=== PATIENT | female | born 1975 | race Caucasian/White ===

== ENCOUNTER 2022-07-27 07:54 | Outpatient (REF) | payer OTHER, SELFPAY ==
--- NOTE | ~2022-07-27 | MM_ITS ---
EXAMINATION: MM SCREENING DIGITAL BREAST TOMOSYNTHESIS, BILATERAL CLINICAL INFORMATION: Screening. Asymptomatic. The lifetime risk of breast cancer based on the Tyrer-Cuzick Model is 21%. COMPARISON: Outside baseline mamm[facility]: [facility]2021 [facility] TECHNIQUE: Digital breast tomosynthesis is performed in both the craniocaudal and mediolateral oblique views along with computer-aided detection (CAD). Synthesized 2D images are generated from the tomosynthesis. FINDINGS: The breasts are heterogeneously dense, which may obscure small masses (ACR BI-RADS breast composition Category c). Parenchymal pattern is similar to prior outside baseline exam. There are no significant masses, abnormal calcifications, or other abnormalities. No architectural abnormality. The axilla and skin contours are unremarkable. MM/MM tomosynthesis screening BI IMPRESSION: No mammographic evidence of malignancy. ASSESSMENT: BI-RADS 1: Negative RECOMMENDATION: Routine annual mammography screening. This patient's information was entered into a reminder system with a target due date for their next mammogram.
== END 2022-07-27 07:55 | disposition home or self-care (01) ==
LOC: HO.MAMMO 07:54
PROVIDERS: PCP Internal Medicine; Visit Provider Internal Medicine
DX: Z12.31 Encounter for screening mammogram for malignant neoplasm of breast (principal)
CPT/HCPCS: 77063; 77067

== ENCOUNTER 2024-01-31 12:30 | Outpatient (AMB) | payer OTHER, SELFPAY ==
[2024-01-31 12:48] VITALS: BP 112/62; PULSE 89; TEMP 36.4; O2SAT 98
--- NOTE | 2024-01-31 12:48 | AM.OFFWIN_ITS ---
Intake Vital Signs 01/31/24 12:48 Weight 190 lb BP 112/62 Blood Pressure Location Rt brachial Position Sitting Pulse 89 Pulse Source Pulse Oximeter Temp 97.6 F Temp Source Oral Pulse Oximetry (%) 98 Oxygen Delivery Method Room Air Intake Visit Reasons: EP Sore throat Intake Note: Pt is here today for a sore throat x1day Allergies acetaminophen [From VICODIN] Adverse Reaction (Mild, Unverified 11/26/19 19:25) N/V hydrocodone [From VICODIN] Adverse Reaction (Mild, Unverified 11/26/19 19:25) N/V HPI HPI Comments History of Present Illness Details 48 y/o female patient who presents to [facility] walk in clinic with c/o Sore- throat since yesterday evening. Denies fevers, chills, nausea or vomiting. Denies any recent contact with a sick person. Review of Systems Const All systems reviewed & are unremarkable except as noted in HPI and below Physical Exam Vital Signs: Last Vital Signs Temp 97.6 F 01/31/24 12:48 Pulse 89 01/31/24 12:48 BP 112/62 01/31/24 12:48 Pulse Ox 98 01/31/24 12:48 Oxygen Delivery Method Room Air 01/31/24 12:48 Const General: cooperative and no acute distress Orientation/consciousness: patient oriented x3 HEENT Head: Yes normocephalic Ears: external ears normal and TM abnormal with fluid behind the TM General nose exam: Normal external nose present Face and sinus: Yes sinuses nontender Mouth: tongue normal and moist mucous membranes Throat: Yes uvula midline and Yes abnormal tonsil (enlarged tonsils.) Resp Effort & Inspection: normal respiratory effort Auscultation: clear to auscultation bilaterally, no crackles, no rales, no rhonchi and no wheezes Cardio Heart sounds: S1 normal heart sound present and S2 normal heart sound present Neuro General: patient oriented x3 Results AMB Rapid Strep AMB Rapid Strep Negative Last Edit by Marjorie Treadwell CMA on 01/31/24 12:56 Results Reviewed Results Reviewed: Laboratory Last Values Strep Scn Rapid Clinic Negative 01/31/24 12:55 Assessment & Plan Assessment & Plan (1) Acute laryngitis: Code(s): J04.0 - Acute laryngitis Plan: Viral vs Bacterial Rapid Strep negative Warm fluids with honey Acetaminophen for pain relief. Orders: Orders AMB Rapid Strep Screen Today Z13.9 - Encounter for screening, unspecified Coding Level of Care Code Est Pt Level 3 (73689) Diagnoses Acute laryngitis J04.0 Time Spent (min) 15
== END 2024-01-31 13:10 | disposition home or self-care (01) ==
PROVIDERS: PCP Internal Medicine; Visit Provider Nurse Practitioner Family
DX: J04.0 Acute laryngitis (principal); Z13.9 Encounter for screening, unspecified

== ENCOUNTER → 2024-01-31 12:30 | Outpatient (BNVA) | payer OTHER, SELFPAY | PROVIDERS: PCP Internal Medicine; Visit Provider Nurse Practitioner Family | DX: J04.0 Acute laryngitis (principal) | CPT/HCPCS: 87880; 99212 ==